=== PATIENT | female | born 1990 | race Caucasian/White ===

== ENCOUNTER 2017-07-06 15:22 | Emergency (ER) | payer MEDICAID, OTHER ==
[2017-07-06 15:40] VITALS: BP 134/79
[2017-07-06] MEDS ORDERED: DEXAMETHASONE SODIUM PHOSPHATE 10 MG/ML VIAL IM ONE (16:24)
--- NOTE | 2017-07-06 16:32 | ERNOTE ---
ENT HPI Date of Service: 07/06/17 Time Seen by Provider: 07/06/17 16:20 Source: patient Exam Limitations: no limitations - Immun/Allergies/Home Medications Immunizations: IMMUNIZATION HX Immunizations Up to Date Yes History of Influenza Vaccine Yes Hx Pneumococcal Vaccination No Allergies/Adverse Reactions: Allergies Allergy/AdvReac Type Severity Reaction Status Date / Time No Known Allergies Allergy Verified 08/08/15 23:55 Home Medications: HOME MEDICATIONS Ibuprofen [Motrin] 800 mg PO Q6H PRN #0 tablet 09/08/15 [Last Taken Unknown] Citalopram Hydrobromide [Citalopram HBr] 20 mg PO DAILY 07/06/17 [Last Taken Unknown] Penicillin V Potassium [Pen-Vee K] 500 mg PO Q8H #30 tab 07/06/17 [Last Taken Unknown] - History of Present Illness Narrative: Patient presents to the ED with ST for 2 days. She has an exposure to strep throat. She thinks she has strep too. Hurts to swallow, bilateral pain. No inability to swallow or drooling. No dental pain. No CP or SOB. No rash. Has felt feverish. Has not seen anyone else for this. Severity: Present: moderate ENT Location: Present: throat Prearrival Treatment: Present: no prearrival treatment Modifying Factors - Improves: Reports: nothing Modifying Factors - Worsens: Reports: other - swallowing Associated Symptoms - ENT: Reports: fever, sore throat. Denies: poor fluid intake, cough, voice change, nasal congestion/drainage, tooth pain, headache Prior Treament: Denies: recently seen Review of Systems - Review of Systems Constitutional: Present: See HPI EYE: Present: no symptoms reported ENT: Present: See HPI Respiratory: Absent: shortness of breath Cardiology: Absent: chest pain Gastrointestinal/Abdominal: Absent: abdominal pain Skin: Absent: rash Neurological: Absent: weakness - Patient's Past Medical History Patient History - Medical: No pertinent hx Patient History - Cardiac/Respiratory: Asthma Patient History - Cancer: No Hx of Cancer Patient History - Surgical Procedures: No surgical history Patient History - Other: None LMP (females 10-50): 3 weeks - Family History Grandfather-Paternal Family History - Medical: , Diabetes Type 2 Grandfather-Maternal Family History - Cardiac/Respiratory: Hypertension - Social History Living Situations: home Psych History: No pertinent hx Smoking Status: Never smoker Have you smoked in the past 12 months: No Do you dip or chew tobacco: No Alcohol Use: occasionally Drug Use: none - Immunizations Immunizations Up to Date: Yes Hx Pneumococcal Vaccination: No History of Influenza Vaccine: Yes Physical Exam - Physical Exam General Appearance: Present: alert, no apparent distress Head Exam: Present: normal inspection, no evidence of injury Eye Exam: Normal inspection: bilateral, PERRL: bilateral Ears, Nose, Throat: Present: pharyngeal erythema, other - no evidence of SERVER CASHIER, RPA or epiglottitis.. Absent: abnormal TM (R), abnormal TM (L), pharyngeal swelling, tonsillar exudate, tonsillar swelling, dry mucous membranes Neck: Present: normal inspection, other - no masses or meningeal signs Respiratory: Present: no respiratory distress, normal breath sounds, no accessory muscle use Cardiovascular/Chest: Present: regular rate, rhythm Gastrointestinal/Abdominal: Present: normal bowel sounds, nontender, nondistended, soft Back Exam: Present: normal range of motion Extremity Exam: Present: normal range of motion Neurological Exam: Present: alert, no motor/sensory deficits Skin Exam: Present: normal color, warm/dry. Absent: skin rash ED Progress - Results and Orders Patient's Lab Results:: I have reviewed the patient's lab results. - Vital Signs Patient's Vital Signs:: I have reviewed the patient's vital signs. Vital Signs: Vital Signs 07/06/17 15:36 Temperature 37.2 C Pulse Rate 99 Respiratory 16 Rate Blood Pressure 134/79 O2 Sat by Pulse 100 Oximetry - Progress/Reassessment Chief Complaint: Sore Throat Progress Note-Subjective: 07/06/17 16:28 Uncomplicated strep, no abscess. Decadron and ABx. Stable for initial outpatient management. I discussed warning signs and reasons to return as well as the need for close f/u. Departure Clinical Impression: Strep pharyngitis - Departure Disposition: Home self-care Condition: Stable Instructions: Strep Throat, Emsi-ez-Jice Additional Instructions: Rest. Fluids. Follow-up with your doctor in 3 days for a re-check. Return for trouble breathing or swallowing, swelling or if your condition worsens or changes in any way. Referrals: Amarilys Slaughter MD [Primary Care Provider] - Prescriptions: Penicillin V Potassium [Pen-Vee K] 500 mg PO Q8H #30 tab
[2017-07-06] MEDS ORDERED: DEXAMETHASONE SODIUM PHOSPHATE 10 MG/ML VIAL ONE (16:37)
== END 2017-07-06 16:40 | disposition home or self-care (01) ==
LOC: ER 15:22
DX: J02.0 Streptococcal pharyngitis (principal)

== ENCOUNTER 2018-05-21 09:57 | Inpatient (IN) ==
[2018-05-21] MEDS ORDERED: NALBUPHINE HCL 10 MG/ML AMPUL IV PRN ×2 (10:05)
[2018-05-21] MEDS ORDERED: RINGER'S SOLUTION,LACTATED 1,000 ML IV PRN (10:05)
[2018-05-21] MEDS ORDERED: ONDANSETRON HCL/PF 2 MG/ML VIAL IV PRN ×2 (10:05→12:06)
[2018-05-21] MEDS ORDERED: OXYTOCIN/DEXTROSE 5%-WATER 30 UNITS/500 ML BAG IV ONE ×2 (10:05→20:00)
[2018-05-21] MEDS ORDERED: RINGER'S SOLUTION,LACTATED 1,000 ML IV ONE (10:05)
[2018-05-21] MEDS ORDERED: LIDOCAINE HCL 50 ML VIAL PERI PRN (10:05)
--- NOTE | 2018-05-21 11:32 | PN ---
Progess Note - Interim Date: 05/21/18 Time: 11:32 Narrative: 05/21/18 11:32 Please refer to today's office visit for H&P
--- NOTE | 2018-05-21 11:57 | PN ---
Nitin Note - Interim Date: 05/21/18 Time: 11:56 Narrative: 05/21/18 11:56 The patient is feeling more uncomfortable and has received one dose of nubain cvx 3.5/80/-1 AROM for clear fluid The patient will receive her epidural FHT cat 1 Anticipate
[2018-05-21] MEDS ORDERED: NALOXONE HCL 1 MG/1 ML SYRG IV PRN (12:06)
[2018-05-21] MEDS ORDERED: BUPIVACAINE HCL/0.9 % NACL/PF 250 ML EP PRN (12:06)
--- NOTE | 2018-05-21 12:11 | ANES ---
Anesthesia Pre Procedure Eval Vitals/Labs: Last Vital Signs Temp 36.7 C 05/21/18 10:00 Pulse 100 05/21/18 10:00 Resp 20 05/21/18 10:00 BP 115/60 05/21/18 10:00 Pulse Ox 97 05/21/18 10:00 HOME MEDICATIONS vitamin,calcium,twfginnx-juym-jcwyd acid tablet 1 tab PO DAILY 12/20/17 [Last Taken 05/20/18 20:00] ranitidine 150 mg capsule 150 mg PO BID cap 12/20/17 [Last Taken Unknown] sertraline 50 mg tablet 50 mg PO DAILY #30 tab 04/29/18 [Last Taken 05/20/18 20:00] Allergies/Adverse Reactions: Allergies Allergy/AdvReac Type Severity Reaction Status Date / Time No Known Allergies Allergy Verified 05/21/18 09:12 - Planned Procedure Planned Procedure: ACTIVE LABOR Medication List Reviewed:: Yes Allergies Verified: Yes Medical History (Last Reviewed 05/21/18 @ 12:10 by Jayson Stewart CRNA) 3, currently Onset Date: 10/29/17 Wrist pain Onset Date: ~12/01/14 left Anxiety Onset Date: Unknown Asthma Onset Date: Unknown sports induced GERD (gastroesophageal reflux disease) Onset Date: Unknown Bilateral hand pain Onset Date: Unknown Otitis media Onset Date: Unknown Shoulder pain Onset Date: 01/23/12 left Surgical History (Last Reviewed 05/21/18 @ 12:10 by Jayson Stewart CRNA) Encounter for insertion of mirena IUD Onset Date: ~09/2015 Family History (Last Reviewed 05/21/18 @ 12:10 by Jayson Stewart CRNA) Brother Asthma Father Diverticulitis Grandfather , paternal Diabetes Grandmother Parkinson's disease Cancer paternal Mother Asthma - Family Anesthesia History Family History:: no untoward family reactions to anesthesia, no familial bleeding tendencies, no family history of clotting disorders, no family history of premature - Airway/Neck/Teeth Within Normal Limits:: Yes Teeth Condition: Intact Neck Exam: non-tender Mallampatti Score: 2 Thyromental (T-M) distance: > 6 cm Mandibulo Hyoid distance: > 3 cm - Respiratory Respiratory: chest non-tender, lungs clear Smoking Status: Never smoker Discussed smoking cessation including day of surgery: No Sleep Apnea currently treated: No Sleep Apnea by current assessment: No Discussed Risks/Treatment of EVA: No - Cardiovascular Patient History - Cardiac/Respiratory: No pertinent hx Tolerates Activity: Fair Heart Sounds: S1 & S2, Regular - Anesthesia Assessment and Plan ASA Class: PS, II, E Anesthesia Type Plan: Epidural - CSE for active labor pain
[2018-05-21] MEDS ORDERED: fentaNYL CITRATE/PF 50 MCG/ML AMPUL IT SCH (12:15)
--- NOTE | 2018-05-21 12:33 | ANES ---
Post Anesthesia Discharge - Transfer of Care Transfer of Care handoff given to nurse: Yes - Discharge from PACU Discharge from PACU when meets criteria: Yes - Comfortable post CSE
--- NOTE | 2018-05-21 12:34 | ANES ---
Anesthesia Procedure Note Procedure Note: ANESTHESIA PROCEDURE NOTE Date of Procedure: [05/21/2018 Time of procedure: 1210. Performed by: BRANDAN Kolb CRNA, MSN Wire Weaver Cloth: Ysabel Lorenzo RN. Preprocedure diagnosis: Active labor, labor pain. Post procedure diagnosis: Same. Procedure:Epidural for labor analgesia L4-5. Indications: Labor pain. Findings: See below. Details of the procedure: The patient was placed on the side of the bed in sitting positionand prepped with DuraPrep then draped in a sterile fashion. Lidocaine 1% was infiltrated to the skin and subcutaneous tissues at the level of the L4-5 interspace. An 18-gauge Touhy needle was used to approach the epidural space with loss of resistance technique. Once loss of resistance was achieved a 27-gauge spinal needle was passed through the epidural needle and CSF was contacted. After CSF returned, 20 mcg of fentanyl was injected in the spinal needle was removed the epidural catheter was then threaded approximately 4 cm in the epidural needle was removed. The catheter was taped in place and after careful aspiration 3 mL of 1.5% lidocaine with 1-200,000 epinephrine was injected without change in maternal heart rate or sensorium. . EBL: Minimal. Fluids: N/A. Specimen: N/A. Post procedure condition: The patient tolerated the procedure well with good relief. No complications were noted. Thank you for this consultation. Jayson Stewart CRNA, BRANDAN, MSN
--- NOTE | 2018-05-21 13:50 | ANES ---
Post Anesthesia Assessment - Vital Signs Vitals: Last Vital Signs Temp 36.0 C 05/21/18 12:11 Pulse 83 05/21/18 12:11 Resp 20 05/21/18 10:00 BP 134/79 05/21/18 12:11 Pulse Ox 98 05/21/18 12:11 Airway Patency: Normal - Mental Status Level Of Consciousness: Awake, Alert - Pain Level Pain Score: 0 - N/V Assessment Nausea/Vomiting Presence: None Dehydration:: No
[2018-05-21 14:03] LABS: Cocaine Ur Negative (NEGATIVE); Urine Barbiturate Negative (NEGATIVE); Urine Benzodiazepines Negative (NEGATIVE); Urine Opiates Negative (NEGATIVE); Urine PCP Negative (NEGATIVE); Urine THC Negative (NEGATIVE)
--- NOTE | 2018-05-21 15:09 | PN ---
Nitin Note - Interim Date: 05/21/18 Time: 15:08 Narrative: 05/21/18 15:08 Pt comfortable with epidural cvx /-3, lots of clear fluid IUPC/FSE placed The patient is currently on pitocin Anticipate
[2018-05-21] MEDS ORDERED: HYDROCORTISONE 30 APPL TUBE TP PRN (20:00)
[2018-05-21] MEDS ORDERED: GLYCERIN/WITCH HAZEL LEAF 40 APPL BOX TP PRN (20:00)
[2018-05-21] MEDS ORDERED: diphenhydrAMINE HCL 25 MG CAPSULE PO PRN (20:00)
[2018-05-21] MEDS ORDERED: HYDROcodone/ACETAMINOPHEN 1 EACH TABLET PO PRN ×2 (20:00)
[2018-05-21] MEDS ORDERED: BENZOCAINE/MENTHOL 81 SPRAY CAN TP PRN (20:00)
[2018-05-21] MEDS ORDERED: BISACODYL 10 MG SUPP.RECT RC PRN (20:00)
[2018-05-21] MEDS ORDERED: SENNOSIDES 8.6 MG TABLET PO PRN (20:00)
--- NOTE | 2018-05-21 20:17 | OR ---
Operative Report - Dictated Report Narrative: Date of delivery: 05/21/2018 Time of delivery: 1944 Gender: male weight: 3607 grams APGARS 9/9 The patient is a 27 yo @ 37w 1d who presented to the office today in labor. Labor was augmented with AROM and low dose pitocin. The patient progressed to complete dilation. The baby delivered in DOROTHEA presentation over an intact perineum. The rest of the was delivered atraumatically. Cord clamping was delayed for 60 seconds. The placenta was delivered by expression and appeared intact. There was a midline labial laceration that was hemostatic and therefore not repaired. EBL: 50 mL Lacerations: midline labial, not repaired Complications: none Definition: * The number of deliveries resulting in a live the patient experienced prior to current hospitalization * The previous delivery of live twins or any live multiple gestation is consid ered one live event. *If primagravida or nulliparous is documented select zero for the number of previous live births. Live births: 2
[2018-05-21] MEDS: IBUPROFEN 800 MG TABLET PO PRN (23:09)
[2018-05-21] MEDS: DOCUSATE SODIUM 100 MG CAPSULE PO SCH (23:09)
[2018-05-22] MEDS: DOCUSATE SODIUM 100 MG CAPSULE PO SCH ×3 (07:50→21:50)
[2018-05-22] MEDS: IBUPROFEN 800 MG TABLET PO PRN (07:50)
--- NOTE | 2018-05-22 08:41 | PN ---
Subjective - Date and Time Seen Date: 05/22/18 Time: 08:39 Subjective Narrative: Pt without complaints Objective Objective Narrative: See vital signs - Review of Systems Generalized/Overall Review: Reports: No Symptoms Reported Misc: All systems neg except as marked - Vitals Vitals: Last Vital Signs Temp 35.9 C L 05/22/18 07:30 Pulse 87 05/22/18 07:30 Resp 20 05/22/18 07:30 BP 138/85 05/22/18 07:30 Pulse Ox 98 05/22/18 07:30 - Exam Constitutional: Present: Alert, Oriented x3, Cooperative, No distress Abdomen: Present: soft, nontender, nondistended Extremity: Present: non-tender, no calf tenderness, pedal edema Skin Exam: Present: normal color, warm/dry, no cyanosis Appearance: Present: appropriate appearance Eye contact: Present: cooperative Thoughts: Present: normal thought pattern Cauti Physician Documentation - Urinary Catheter Management Urethral (Thao) Urethral Indwelling: No Date of Insertion: 05/21/18 Time of Insertion: 13:00 Date of Removal: 05/21/18 Time of Removal: 19:40 Assessment/Plan Plan Narrative: PPD 1 s/p Doing well Discharge tomorrow
--- NOTE | 2018-05-23 08:10 | PN ---
Subjective - Date and Time Seen Date: 05/23/18 Time: 08:08 Subjective Narrative: Pt without complaints Objective Objective Narrative: See vital signs - Review of Systems Generalized/Overall Review: Reports: No Symptoms Reported Misc: All systems neg except as marked - Vitals Vitals: Last Vital Signs Temp 36.7 C 05/22/18 17:00 Pulse 82 05/22/18 19:10 Resp 16 05/22/18 19:10 BP 138/71 05/22/18 19:10 Pulse Ox 99 05/22/18 19:10 - Exam Constitutional: Present: Alert, Oriented x3, Cooperative, No distress Skin Exam: Present: normal color, warm/dry, no cyanosis Appearance: Present: appropriate appearance Eye contact: Present: cooperative Thoughts: Present: normal thought pattern Cauti Physician Documentation - Urinary Catheter Management Urethral (Thao) Urethral Indwelling: No Date of Insertion: 05/21/18 Time of Insertion: 13:00 Date of Removal: 05/21/18 Time of Removal: 19:40 Assessment/Plan Plan Narrative: PPD 2 s/p Doing well Discharge today
[2018-05-23] MEDS: DOCUSATE SODIUM 100 MG CAPSULE PO SCH (09:28)
[2018-05-23 13:45] VITALS: BP 148/81
== END 2018-05-23 13:30 | disposition home or self-care (01) | DRG 807 ==
LOC: OB 09:57 → MS 05-22 15:40
PROVIDERS: ADMIT Obstetrics & Gynecology; ATTEND Obstetrics & Gynecology
CPT/HCPCS: 59025; 80307; 86850; 86900; G0479